=== PATIENT | female | born 1975 | race Caucasian/White ===

== ENCOUNTER 2016-09-26 15:03 | Emergency (ER) | payer SELFPAY ==
[~2016-09-26] VITALS: Ht 152.4 cm; Wt 59.6 kg
[2016-09-26] MEDS ORDERED: NS 1,000 ML IV ONE (15:30)
[2016-09-26] MEDS ORDERED: diphenhydrAMINE INJ 50MG/ML VIAL (J1200) IV ONE (15:30)
[2016-09-26] MEDS ORDERED: PANTOPRAZOLE 40MG INJ (PROTONIX) (C9113) IV ONE (15:30)
[2016-09-26] MEDS ORDERED: KETOROLAC 30 MG/ML VIAL (J1885) IV ONE (15:30)
[2016-09-26 15:34] LABS: BASO # 0.1 K/mm3 (0.0-0.2); BASO % 0.3 % (0.0-1.0); EOS # 0.3 K/mm3 (0.0-0.50); EOS % 1.4 % (0.0-3.0); LARGE UNSTAINED CELL # 0.1 K/mm3 (0.0-0.4); LARGE UNSTAINED CELL % 0.5 % (0.0-4.0); LYMPH # 1.9 K/mm3 (1.5-4.5); LYMPH % 7.6 % (24.0-44.0); MEAN CORPUSCULAR HEMOGLOBIN 31.3 pg (27.0-33.0); MEAN CORPUSCULAR HGB CONC 35.1 g/dl (32.0-36.5); MEAN CORPUSCULAR VOLUME 89.2 fl (80.0-96.0); MONO # 0.7 K/mm3 (0.0-0.8); MONO % 3.2 % (0.0-5.0); NEUTROPHILS % 87.1 % (36.0-66.0); PLATELET COUNT, AUTOMATED 303 k/mm3 (150-450); RED CELL DISTRIBUTION WIDTH 12.9 % (11.5-14.5)
[2016-09-26 15:49] LABS: CONTROL LINE HCG INT CTR LINE PRESENT
[2016-09-26 15:56] LABS: ALBUMIN 4.5 GM/DL (3.2-5.2); ALBUMIN/GLOBULIN RATIO 1.41 (1.00-1.93); ALKALINE PHOSPHATASE 79 U/L (45-117); ALT/SGPT 44 U/L (12-78); ANION GAP 11 MEQ/L (8-16); AST/SGOT 37 U/L (15-37); BILIRUBIN,DIRECT 0.3 MG/DL (0.0-0.2); BILIRUBIN,TOTAL 1.2 MG/DL (0.2-1.0); BLOOD UREA NITROGEN 14 MG/DL (7-18); CALCIUM LEVEL 9.2 MG/DL (8.5-10.1); CARBON DIOXIDE LEVEL 27 MEQ/L (21-32); CHLORIDE LEVEL 103 MEQ/L (98-107); CREATININE FOR GFR 0.94 MG/DL (0.55-1.02); GLOMERULAR FILTRATION RATE > 60.0 (>58); GLUCOSE, FASTING 124 MG/DL (70-105); POTASSIUM SERUM 3.9 MEQ/L (3.5-5.1); SODIUM LEVEL 141 MEQ/L (136-145); TOTAL PROTEIN 7.7 GM/DL (6.4-8.2)
[2016-09-26] MEDS ORDERED: ISOVUE-370 76% 100ML VIAL (Q9967) As Ordered ONE (16:12)
[2016-09-26 16:26] LABS: METHADONE URINE NEGATIVE (NEGATIVE)
[2016-09-26] MEDS ORDERED: ZOFR4TAB3 PO (17:22)
[2016-09-26] MEDS ORDERED: BENT10CA PO (17:22)
[2016-09-26] MEDS ORDERED: CIPR-249 PO (17:22)
[2016-09-26] MEDS ORDERED: DICYCLOMINE 10 MG CAP PO ONE (17:30)
[2016-09-26 17:36] VITALS: BP 129/95
--- NOTE | 2016-09-27 06:43 | REP ---
CT ABDOMEN AND PELVIS WITH IV CONTRAST: 09/26/2016. Clinical history: Abdominal pain. Possible colitis. Technique: The patient received a bolus of 100 ml Isovue 370, scanning through the abdomen and pelvis with both coronal and sagittal reconstructions. Findings:CT abdomen: Lung bases are clear except for some minor dependent atelectatic change in the left lower lung zone. Heart is not enlarged. There is no pericardial thickening or effusion. I see no hiatal hernia. There may be some fatty infiltration of the liver but no hepatomegaly, splenomegaly, focal hepatic or splenic mass nor intrahepatic biliary dilatation. I see no adjacent ascites. Clips from prior cholecystectomy noted in the gallbladder fossa. Pancreas normal. No peripancreatic inflammatory changes. Adrenal glands are normal. Kidneys show function without obstruction, stone, mass or cyst. No perinephric edema. Ureters show normal course to the bladder. They are not dilated and show no stone on either side. Small bowel loops are fluid filled but not dilated. The colon is filled with stool and liquid from the cecum through the distal left colon in the abdomen. No inflammatory changes or sign of diverticulosis/diverticulitis. No infiltration of the fat adjacent to it. The appendix is seen and normal. Abdominal aorta without aneurysm or dissection. No periaortic or other retroperitoneal pathologic sized lymphadenopathy. Lung windows show no evidence of free air, perforation or abscess. The bone windows show lumbar and lower thoracic spine grossly intact as are their posterior elements. Visualized ribs were unremarkable. CT pelvis: Sacrum, SI joints, pelvis, hips and symphysis pubis with pubic rami all unremarkable. Bladder is adequately filled without mass. Uterus is retroverted and retroflexed, somewhat globular and heterogeneous in enhancement suggesting fibroid uterus may be present. No distal ureteral dilatation or stone nor bladder stone. No ventral or inguinal hernia in the abdomen or pelvis. Small bowel loops in the deep pelvis were without dilatation or inflammatory change. The distal left colon and sigmoid are without colitis, diverticulitis, stricture or mass. There is an IUD in the body of the fundus of the uterus centrally. Right ovary showed a 1.9 cm dominant follicle, the left a 1.7 cm dominant follicle, normal findings. Impression: 1. Some fluid filled but not dilated small bowel loops seen throughout the abdomen but there is diffuse fluid throughout the colon with scattered stool and this suggests some gastroenteritis. No inflammatory changes in the mesentery adjacent to the colon that would clearly define colitis nor is there evidence for diverticulitis. No ascites or free air. No adenopathy. 2. Status post cholecystectomy. Fatty liver suggested. No hepatosplenomegaly. 3. Pancreas, adrenal glands, kidneys and stomach unremarkable. 4. Retroverted uterus. Probable fibroid type with IUD in place. 5. Dominant follicle 19 mm in the right, 17 mm in the left ovary as benign finding. No pelvic free fluid or adenopathy. 6. Colon without mass or stricture. No renal, ureteral or bladder stone. No hydronephrosis. Signed by Rodney Miller MD 09/27/2016 07:57 A
== END 2016-09-26 18:02 | disposition home or self-care (01) ==
LOC: M ED 15:03 → EDBD 15:03 → M ED 18:02
DX: A08.4 Viral intestinal infection, unspecified (principal); N39.0 Urinary tract infection, site not specified; N83.01 Follicular cyst of right ovary; N83.02 Follicular cyst of left ovary; I10 Essential (primary) hypertension; Z90.49 Acquired absence of other specified parts of digestive tract; Z88.1 Allergy status to other antibiotic agents
CPT/HCPCS: 36415; 74177; 80048; 80076; 80307; 81001; 83690; 84703; 85025; 96374; 96375; 99284; C9113; J1200; J1885; Q9967